=== PATIENT | female | born 1980 | race Caucasian/White ===

== ENCOUNTER 2021-01-19 12:59 | Emergency (ER) | payer SELFPAY ==
--- NOTE | 2021-01-19 13:43 | ER ---
Nurse's Notes [facility] Name: Miya Restrepo Age: 40 yrs Sex: Female : 1980 Arrival Date: 01/19/2021 Time: 13:00 Bed 13 Private MD: Diagnosis: Abscess, furuncle and carbuncle of nose;Dental caries;Dental root caries Presentation: 01/19 13:06 Chief complaint: Patient states: pt unsure if pain was from her nose or her mouth, but tr6 c/o swelling to upper lip and face x3days. Coronavirus screen: Client denies travel out of the [place] in the last 14 days. Ebola Screen: Patient negative for fever greater than or equal to 101.5 degrees Fahrenheit, and additional compatible Ebola Virus Disease symptoms Patient denies exposure to infectious person. Patient denies travel to an Ebola-affected area in the 21 days before illness onset. Initial Sepsis Screen: Does the patient meet any 2 criteria? No. Patient's initial sepsis screen is negative. Does the patient have a suspected source of infection? No. Patient's initial sepsis screen is negative. Risk Assessment: Do you want to hurt yourself or someone else? Patient reports no desire to harm self or others. 13:06 Method Of Arrival: Ambulatory tr6 13:10 Onset of symptoms was January 16, 2021. tr6 13:26 Acuity: WILLY 4 tr6 Triage Assessment: 13:07 General: Appears in no apparent distress. Behavior is calm, cooperative, appropriate tr6 for age. Pain: Complains of pain in upper lip/mouth/ nose. EENT: Reports pain in nose and mouth pt c/o swelling. Neuro: No deficits noted. Cardiovascular: No deficits noted. Respiratory: No deficits noted. GI: No deficits noted. : No deficits noted. Derm: No deficits noted. Musculoskeletal: No deficits noted. Historical: - Allergies: 13:09 No Known Allergies; tr6 - Immunization history:: Adult Immunizations up to date. - Social history:: Smoking status: Patient reports the use of cigarette tobacco products, smokes one pack cigarettes per day. - Family history:: not pertinent. Screenin:10 Abuse screen: Denies threats or abuse. Denies injuries from another. Nutritional tr6 screening: No deficits noted. Tuberculosis screening: No symptoms or risk factors identified. Fall Risk None identified. Assessment: 13:09 Reassessment: see triage assessment. tr6 13:52 Reassessment: awaiting IV fluids to complete before patient is discharge. ap3 Vital Signs: 13:15 BP 133 / 93; Pulse 106; Resp 17; Temp 98.0(O); Pulse Ox 98% on R/A; dh4 14:07 BP 121 / 84; Pulse 94; Pulse Ox 98% on R/A; ap3 ED Course: 13:00 Patient arrived in ED. am2 13:05 Rony Calhoun MD is Attending Physician. dwight 13:10 Arm band placed on right wrist. tr6 13:25 Lina Little, RN is Primary Nurse. ap3 13:25 Patient has correct armband on for positive identification. Bed in low position. Call ap3 light in reach. Side rails up X 1. Pulse ox on. NIBP on. Door closed. Noise minimized. Warm blanket given. 13:26 Triage completed. tr6 13:41 Armando Marques DDS is Referral Physician. dwight 13:47 Inserted saline lock: 20 gauge in left wrist, using aseptic technique. ap3 14:21 No provider procedures requiring assistance completed. intact, bleeding controlled, No ap3 redness/swelling at site. Pressure dressing applied. Administered Medications: 13:45 Drug: Clindamycin 900 mg Route: IVPB; Infused Over: 30 mins; Site: right wrist; ap3 14:23 Follow up: Response: No adverse reaction; IV Status: Completed infusion ap3 13:52 Drug: Clindamycin 300 mg Route: PO; ap3 14:22 Follow up: Response: No adverse reaction ap3 13:52 Drug: Motrin (ibuprofen) 600 mg Route: PO; ap3 14:22 Follow up: Response: No adverse reaction; Pain is decreased ap3 Outcome: 13:42 Discharge ordered by . dwight 14:22 Discharged to home ambulatory. ap3 14:22 Condition: stable 14:22 Discharge instructions given to patient, Instructed on discharge instructions, follow up and referral plans. medication usage, Demonstrated understanding of instructions, follow-up care, medications, Prescriptions given X 2. 14:23 Patient left the ED. ap3 Signatures: Rony Calhoun MD MD cha Moreno, Amanda am2 Lina Little, RN RN ap3 Eduard Esquivel dh4 Eloina House, RN RN tr6
--- NOTE | 2021-01-19 13:43 | EDPHYS ---
Physician Documentation [facility] Name: Miya Restrepo Age: 40 yrs Sex: Female : 1980 Arrival Date: 01/19/2021 Time: 13:00 Bed 13 Private MD: ED Physician Rony Calhoun HPI: 01/19 13:37 This 40 yrs old Female presents to ER via Ambulatory with complaints of dwight Abscess. 13:37 The patient presents with an abscess of the nose. Description: The affected area is dwight small, confluent, erythematous. Onset: The symptoms/episode began/occurred 1 day(s) ago. Possible cause(s): unknown. Historical: - Allergies: 13:09 No Known Allergies; tr6 - Immunization history:: Adult Immunizations up to date. - Social history:: Smoking status: Patient reports the use of cigarette tobacco products, smokes one pack cigarettes per day. - Family history:: not pertinent. ROS: 13:37 Constitutional: Negative for fever, chills, and weight loss, Eyes: Negative for injury, dwight pain, redness, and discharge, Neck: Negative for injury, pain, and swelling, Cardiovascular: Negative for chest pain, palpitations, and edema, Respiratory: Negative for shortness of breath, cough, wheezing, and pleuritic chest pain, Abdomen/GI: Negative for abdominal pain, nausea, vomiting, diarrhea, and constipation, Back: Negative for injury and pain, : Negative for injury, bleeding, discharge, and swelling, MS/Extremity: Negative for injury and deformity, Skin: Negative for injury, rash, and discoloration, Neuro: Negative for headache, weakness, numbness, tingling, and seizure, Psych: Negative for depression, anxiety, suicide ideation, homicidal ideation, and hallucinations, Allergy/Immunology: Negative for hives, rash, and allergies, Endocrine: Negative for neck swelling, polydipsia, polyuria, polyphagia, and marked weight changes, Hematologic/Lymphatic: Negative for swollen nodes, abnormal bleeding, and unusual bruising. 13:37 ENT: Positive for Gum pain Exam: 13:37 Constitutional: This is a well developed, well nourished patient who is awake, alert, dwight and in no acute distress. Eyes: Pupils equal round and reactive to light, extra-ocular motions intact. Lids and lashes normal. Conjunctiva and sclera are non-icteric and not injected. Cornea within normal limits. Periorbital areas with no swelling, redness, or edema. Neck: Trachea midline, no thyromegaly or masses palpated, and no cervical lymphadenopathy. Supple, full range of motion without nuchal rigidity, or vertebral point tenderness. No Meningismus. Chest/axilla: Normal chest wall appearance and motion. Nontender with no deformity. No lesions are appreciated. Cardiovascular: Regular rate and rhythm with a normal S1 and S2. No gallops, murmurs, or rubs. Normal PMI, no JVD. No pulse deficits. Respiratory: Lungs have equal breath sounds bilaterally, clear to auscultation and percussion. No rales, rhonchi or wheezes noted. No increased work of breathing, no retractions or nasal flaring. Abdomen/GI: Soft, non-tender, with normal bowel sounds. No distension or tympany. No guarding or rebound. No evidence of tenderness throughout. Back: No spinal tenderness. No costovertebral tenderness. Full range of motion. Skin: Warm, dry with normal turgor. Normal color with no rashes, no lesions, and no evidence of cellulitis. MS/ Extremity: Pulses equal, no cyanosis. Neurovascular intact. Full, normal range of motion. Neuro: Awake and alert, GCS 15, oriented to person, place, time, and situation. Cranial nerves II-XII grossly intact. Motor strength 5/5 in all extremities. Sensory grossly intact. Cerebellar exam normal. Normal gait. Psych: Awake, alert, with orientation to person, place and time. Behavior, mood, and affect are within normal limits. 13:37 Head/face: Noted is erythema, swelling, tenderness, that is moderate, of the nose and mouth. Vital Signs: 13:15 BP 133 / 93; Pulse 106; Resp 17; Temp 98.0(O); Pulse Ox 98% on R/A; dh4 14:07 BP 121 / 84; Pulse 94; Pulse Ox 98% on R/A; ap3 MDM: 13:05 Patient medically screened. [facility] 13:43 Differential diagnosis: abscess, cellulitis. Data reviewed: vital signs, nurses notes. dwight Data interpreted: traffic monitor specialist: rate is 106 beats/min, rhythm is regular, Pulse oximetry: on room air is 98 %. Counseling: I had a detailed discussion with the patient and/or guardian regarding: the historical points, exam findings, and any diagnostic results supporting the discharge/admit diagnosis, lab results. Administered Medications: 13:45 Drug: Clindamycin 900 mg Route: IVPB; Infused Over: 30 mins; Site: right wrist; ap3 14:23 Follow up: Response: No adverse reaction; IV Status: Completed infusion ap3 13:52 Drug: Clindamycin 300 mg Route: PO; ap3 14:22 Follow up: Response: No adverse reaction ap3 13:52 Drug: Motrin (ibuprofen) 600 mg Route: PO; ap3 14:22 Follow up: Response: No adverse reaction; Pain is decreased ap3 Disposition: 01/19/21 13:42 Discharged to Home. Impression: Abscess, furuncle and carbuncle of nose, Dental caries, Dental root caries. - Condition is Stable. - Discharge Instructions: Skin Abscess, Dental Caries, Adult, Dental Pain, Skin Abscess, [id number], Cellulitis, Adult, [id number], Dental Pain, [id number]. - Prescriptions for Clindamycin HCl 300 mg Oral Capsule - take 1 capsule by ORAL route every 6 hours for 10 days; 40 capsule. Ibuprofen 600 mg Oral Tablet - take 1 tablet by ORAL route every 6 hours As needed take with food; 20 tablet. - Medication Reconciliation Form, Thank You Letter, Antibiotic Education, Prescription Opioid Use form. - Follow up: Private Physician; When: 2 - 3 days; Reason: Recheck today's complaints, Continuance of care, Re-evaluation by your physician. Follow up: Armando Marques DDS; When: 2 - 3 days; Reason: Recheck today's complaints, Continuance of care, Re-evaluation by your physician. - Problem is new. - Symptoms have improved. Signatures: Rony Calhoun MD MD cha Prokisch, Amanda, RN RN ap3 Eloina House RN RN tr6 Corrections: (The following items were deleted from the chart) 14:23 13:42 01/19/2021 13:42 Discharged to Home. Impression: Abscess, furuncle and carbuncle ap3 of nose; Dental caries; Dental root caries. Condition is Stable. Forms are Medication Reconciliation Form, Thank You Letter, Antibiotic Education, Prescription Opioid Use. Follow up: Private Physician; When: 2 - 3 days; Reason: Recheck today's complaints, Continuance of care, Re-evaluation by your physician. Follow up: Armando Marques; When: 2 - 3 days; Reason: Recheck today's complaints, Continuance of care, Re-evaluation by your physician. Problem is new. Symptoms have improved. dwight
[2021-01-19] MEDS ORDERED: CLINDAMYCIN 900MG/D5W 900 MG/50 ML IVPB IV ONE (13:55)
[2021-01-19] MEDS ORDERED: IBUPROFEN 200 MG TAB PO ONE (14:09)
[2021-01-19 14:33] VITALS: TEMP 98; O2SAT 98
[2021-01-19 14:34] VITALS: BP 121/84
[2021-01-19] MEDS ORDERED: HEPARIN 500 UNIT/5 ML SYR IV ONE (15:11)
== END 2021-01-19 14:23 | disposition home or self-care (01) ==
LOC: ER 12:59
DX: K02.7 Dental root caries (principal); K02.9 Dental caries, unspecified; F17.210 Nicotine dependence, cigarettes, uncomplicated
CPT/HCPCS: 96365; 99284; J1642

== ENCOUNTER 2022-08-07 19:36 | Emergency (ER) | payer SELFPAY ==
[2022-08-07] MEDS ORDERED: IBUPROFEN 400 MG TAB ONE (20:29)
[2022-08-07] MEDS ORDERED: HYDROCODONE/APAP 5/325 MG TAB ONE (20:29)
--- NOTE | 2022-08-07 20:35 | EDPHYS ---
Physician Documentation [facility] Name: Miya Restrepo Age: 42 yrs Sex: Female : 1980 Arrival Date: 08/07/2022 Time: 19:39 Bed 16 Private MD: ED Physician Rony Calhoun HPI: 08/07 20:22 This 42 yrs old Female presents to ER via Ambulatory with complaints of Abscess. cp 20:22 The patient presents with pain, swelling. The problem is located in the right upper cp jaw. Onset: The symptoms/episode began/occurred 1 day(s) ago. Duration: The symptoms are continuous, and are steadily getting worse. 20:22 Associated signs and symptoms: Pertinent negatives: dysphagia, fever, inability to eat, cp vomiting. 20:22 Severity of symptoms: in the emergency department the symptoms are unchanged, despite cp home interventions. COBBLER UPPER: 19:52 LMP 07/31/2022 kb3 Historical: - Allergies: 19:52 No Known Allergies; kb3 - Home Meds: 19:52 None [Active]; kb3 - PMHx: 19:52 None; kb3 - PSHx: 19:52 None; kb3 - Immunization history:: Adult Immunizations up to date, Client reports having NOT received the Covid vaccine. Last tetanus immunization: up to date. - Social history:: Smoking status: Patient reports the use of cigarette tobacco products, smokes one-half pack cigarettes per day. ROS: 20:23 Eyes: Negative for injury, pain, redness, and discharge. cp 20:23 Constitutional: Negative for body aches, chills, fever, poor PO intake. 20:23 ENT: Positive for dental pain, Negative for drainage from ear(s), ear pain, sinus congestion, sinus pain, difficulty swallowing, difficulty handling secretions. 20:23 Cardiovascular: Negative for chest pain. 20:23 Respiratory: Negative for cough, shortness of breath, wheezing. 20:23 Abdomen/GI: Negative for abdominal pain, vomiting, diarrhea, constipation. 20:23 Neuro: Negative for altered mental status, headache, weakness. 20:23 All other systems are negative. Exam: 20:25 Constitutional: The patient appears in no acute distress, alert, awake, non-toxic, well cp developed, well nourished. 20:25 Head/face: Noted is swelling, of the right cheek, of the very mild, tenderness, that is moderate, of the right cheek. 20:25 Eyes: Periorbital structures: appear normal, Conjunctiva: normal, no exudate, no injection, Sclera: no appreciated abnormality, Lids and lashes: appear normal, bilaterally. 20:25 ENT: External ear(s): are unremarkable, Ear canal(s): are normal, clear, TM's: dullness, bilaterally, Nose: is normal, Mouth: Lips: moist, Oral mucosa: pink and intact, moist, Posterior pharynx: Airway: no evidence of obstruction, patent, Tonsils: are normal in appearance, Uvula: midline, erythema, is not appreciated, exudate, is not appreciated, Dental exam: abscess, is not appreciated, dental caries, that is moderate, diffusely, pain, that is moderate, specifically in the upper right third molar (#1) and upper right second molar (#2), missing crown of teeth with exposed roots, Voice: is normal. 20:25 Neck: ROM/movement: is normal, is supple, without pain, no range of motions limitations, no meningismus, Lymph nodes: no appreciated lymphadenopathy. 20:25 Chest/axilla: Inspection: normal. 20:25 Cardiovascular: Rate: normal, Rhythm: regular. 20:25 Respiratory: the patient does not display signs of respiratory distress, Respirations: normal, no use of accessory muscles, no retractions, labored breathing, is not present, Breath sounds: are clear throughout, no decreased breath sounds, no stridor, no wheezing. 20:25 Skin: cellulitis, is not appreciated, no rash present. Vital Signs: 19:50 BP 133 / 80; Pulse 95; Resp 20; Temp 97.9; Pulse Ox 100% ; Weight 81.65 kg; Height 5 kb3 ft. 3 in. (160.02 cm); Pain 7/10; 19:50 Body Mass Index 31.89 (81.65 kg, 160.02 cm) kb3 MDM: 19:49 Patient medically screened. dwight 20:30 Differential diagnosis: dental abscess, pericoronitis. cp 20:33 Data reviewed: vital signs, nurses notes. cp 20:33 Counseling: I had a detailed discussion with the patient and/or guardian regarding: the cp historical points, exam findings, and any diagnostic results supporting the discharge/admit diagnosis, the need for outpatient follow up, for definitive care, maxillary facial surgeon, to return to the emergency department if symptoms worsen or persist or if there are any questions or concerns that arise at home. Administered Medications: 20:31 Drug: HYDROcodone-acetaminophen 5 mg-325 mg 1 tabs Route: PO; aa9 20:42 Follow up: Response: No adverse reaction aa9 20:31 Drug: Ibuprofen 800 mg Route: PO; aa9 20:42 Follow up: Response: No adverse reaction aa9 20:31 Drug: Clindamycin 300 mg Route: PO; aa9 20:41 Follow up: Response: No adverse reaction aa9 Disposition: 20:35 Chart complete. cp Disposition Summary: 08/07/22 20:34 Discharge Ordered Location: Home cp Problem: new cp Symptoms: have improved cp Condition: Stable cp Diagnosis - Disorder of teeth and supporting structures, unspecified cp Followup: cp - With: Armando Marques DDS - When: 2 - 3 days - Reason: Recheck today's complaints Discharge Instructions: - Discharge Summary Sheet cp - Dental Pain cp Forms: - Medication Reconciliation Form cp - Thank You Letter cp - Antibiotic Education cp - Prescription Opioid Use cp Prescriptions: - Clindamycin HCl 300 mg Oral Capsule - take 1 capsule by ORAL route every 6 hours for 10 days; 40 capsule; Refills: 0, cp Product Selection Permitted - Diclofenac Sodium 75 mg Oral Tablet Sustained Release - take 1 tablet by ORAL route 2 times per day; 30 tablet; Refills: 0, Product cp Selection Permitted Signatures: Rony Calhoun MD MD cha Page, Corey, PA PA cp Yudi Gonzalez RN RN aa9 Marsha Villanueva RN RN kb3 Corrections: (The following items were deleted from the chart) 08/08 13:30 08/07 20:22 Onset: The symptoms/episode began/occurred 2 day(s) ago, cp cp
--- NOTE | 2022-08-07 20:35 | ER ---
Nurse's Notes [facility] Name: Miya Restrepo Age: 42 yrs Sex: Female : 1980 Arrival Date: 08/07/2022 Time: 19:39 Bed 16 Private MD: Diagnosis: Disorder of teeth and supporting structures, unspecified Presentation: 08/07 19:50 Chief complaint: Patient states: Pt reports right upper tooth/jaw pain with right kb3 facial swelling x1 day. Multiple broken and carious teeth noted throughout mouth. No abscess noted. Coronavirus screen: Vaccine status: Patient reports being unvaccinated. Client denies travel out of the [place] in the last 14 days. Ebola Screen: Patient negative for fever greater than or equal to 101.5 degrees Fahrenheit, and additional compatible Ebola Virus Disease symptoms Patient denies exposure to infectious person. Patient denies travel to an Ebola-affected area in the 21 days before illness onset. Initial Sepsis Screen: Does the patient meet any 2 criteria? No. Patient's initial sepsis screen is negative. Does the patient have a suspected source of infection? No. Patient's initial sepsis screen is negative. Risk Assessment: Do you want to hurt yourself or someone else? Patient reports no desire to harm self or others. Onset of symptoms was August 07, 2022 at 08:00. 19:50 Method Of Arrival: Ambulatory kb3 19:50 Acuity: WILLY 4 kb3 Triage Assessment: 19:52 General: Appears in no apparent distress. Behavior is calm, cooperative. Pain: kb3 Complains of pain in right cheek, upper right third molar, upper right second molar and upper right first molar Pain does not radiate. Pain currently is 8 out of 10 on a pain scale. MEDICINE AIDE: 19:52 LMP 07/31/2022 kb3 Historical: - Allergies: 19:52 No Known Allergies; kb3 - Home Meds: 19:52 None [Active]; kb3 - PMHx: 19:52 None; kb3 - PSHx: 19:52 None; kb3 - Immunization history:: Adult Immunizations up to date, Client reports having NOT received the Covid vaccine. Last tetanus immunization: up to date. - Social history:: Smoking status: Patient reports the use of cigarette tobacco products, smokes one-half pack cigarettes per day. Screenin:42 Abuse screen: Denies threats or abuse. Denies injuries from another. Nutritional aa9 screening: Difficulty chewing/swallowing? Yes. Tuberculosis screening: No symptoms or risk factors identified. Fall Risk None identified. Assessment: 20:00 General: Appears comfortable, Behavior is calm, cooperative, appropriate for age. aa9 General: pt states, my face is swelling from this tooth pain I think, it might be infected I have a lot of tooth problem, I just want to start on some antibiotics.. Pain: Complains of pain in right cheek and mouth Pain currently is 9 out of 10 on a pain scale. Is continuous. Neuro: Level of Consciousness is awake, alert, obeys commands, Oriented to person, place, time, situation. Cardiovascular: Patient's skin is warm and dry. Respiratory: Airway is patent Respiratory effort is even, unlabored. GI: No signs and/or symptoms were reported involving the gastrointestinal system. : No signs and/or symptoms were reported regarding the genitourinary system. Derm: Skin is intact, is healthy with good turgor. Musculoskeletal: Swelling present in right cheek. Vital Signs: 19:50 BP 133 / 80; Pulse 95; Resp 20; Temp 97.9; Pulse Ox 100% ; Weight 81.65 kg; Height 5 kb3 ft. 3 in. (160.02 cm); Pain 7/10; 19:50 Body Mass Index 31.89 (81.65 kg, 160.02 cm) kb3 ED Course: 19:39 Patient arrived in ED. ag3 19:41 Rony Pepe PA is PHCP. cp 19:42 Rony Calhoun MD is Attending Physician. cp 19:52 Triage completed. kb3 19:52 Arm band placed on right wrist. Patient placed in an exam room, on a stretcher. kb3 20:00 Yudi Gonzalez, KENNY is Primary Nurse. aa9 20:33 Armando Marques DDS is Referral Physician. cp 20:42 Patient has correct armband on for positive identification. Bed in low position. Call aa9 light in reach. Adult w/ patient. 20:42 No provider procedures requiring assistance completed. Patient did not have IV access aa9 during this emergency room visit. Administered Medications: 20:31 Drug: HYDROcodone-acetaminophen 5 mg-325 mg 1 tabs Route: PO; aa9 20:42 Follow up: Response: No adverse reaction aa9 20:31 Drug: Ibuprofen 800 mg Route: PO; aa9 20:42 Follow up: Response: No adverse reaction aa9 20:31 Drug: Clindamycin 300 mg Route: PO; aa9 20:41 Follow up: Response: No adverse reaction aa9 Medication: 20:42 VIS not applicable for this client. aa9 Outcome: 20:34 Discharge ordered by . keira 20:42 Discharged to home ambulatory, with friend. aa9 20:42 Condition: stable 20:42 Discharge instructions given to patient, Instructed on discharge instructions, follow up and referral plans. medication usage, Demonstrated understanding of instructions, follow-up care, medications, Prescriptions given X 2. 20:43 Patient left the ED. aa9 Signatures: Rony Pepe PA PA cp Gomez, Alice ag3 Yudi Gonzalez RN RN aa9 Marsha Villanueva RN RN kb3 Corrections: (The following items were deleted from the chart) 19:54 19:50 Chief complaint: Patient states: Pt reports right upper tooth/jaw pain with right kb3 facial swelling x1 day kb3
[2022-08-07 20:46] VITALS: BP 133/80; TEMP 97.9; O2SAT 100
== END 2022-08-07 20:43 | disposition home or self-care (01) ==
LOC: ER 19:36
DX: K08.89 Other specified disorders of teeth and supporting structures (principal); F17.210 Nicotine dependence, cigarettes, uncomplicated
CPT/HCPCS: 99283